=== PATIENT | male | born 1995 | race Caucasian/White ===

== ENCOUNTER 2018-05-13 10:07 | Day surgery (SDC) | payer MEDICARE, BC ==
[2018-05-13] MEDS ORDERED: PROPOFOL 40 ML (12:18)
== END 2018-05-13 13:48 | disposition home or self-care (01) ==
LOC: GIL 10:07
DX: K21.0 Gastro-esophageal reflux disease with esophagitis (principal); K29.70 Gastritis, unspecified, without bleeding; K44.9 Diaphragmatic hernia without obstruction or gangrene
CPT/HCPCS: 43239; 88305